=== PATIENT | female | born 1950 | race Caucasian/White ===

== ENCOUNTER 2017-01-26 05:45 | Day surgery (SDC) | payer OTHER ==
[2017-01-26] VITALS (8 sets, daily range): BP systolic 127–143; BP diastolic 51–77
[~2017-01-26] VITALS: Ht 165.1 cm; Wt 67.1 kg
[~2017-01-26 05:45] MED LIST: COZAAR50 MG ORAL; Cyclopentolate 1% Opth Sol ONE; Phenylephrine 2.5% Op Soln ONE; ZOCOR20 M1 ORAL
[2017-01-26] MEDS: Phenylephrine 2.5% Op Soln LEFT EYE SCH ×3 (06:21→06:38)
[2017-01-26] MEDS: Cyclopentolate 1% Opth Sol LEFT EYE SCH ×3 (06:21→06:38)
[2017-01-26] MEDS ORDERED: Maxitrol Opth Oint 3.5gm ONE (06:56)
[2017-01-26] MEDS ORDERED: Pred Forte 1% Opth Susp 1ml ONE (06:56)
[2017-01-26] MEDS ORDERED: Kenalog-40 1ml Vial ONE (06:56)
[2017-01-26] MEDS ORDERED: BSS 500ml btl ONE (06:56)
[2017-01-26] MEDS ORDERED: Tetracaine 0.5% Opth Soln ONE (06:57)
[2017-01-26] MEDS ORDERED: Kenalog-10 5ml Inj ONE (06:57)
[2017-01-26] MEDS ORDERED: EPINEPHrine 1mg/1ml Amp ONE (06:57)
[2017-01-26] MEDS ORDERED: Povidone-Iodine 5% opth solution ONE (06:57)
[2017-01-26] MEDS ORDERED: Dexamethasone 4mg/ml vial ONE (06:57)
[2017-01-26] MEDS ORDERED: Goniosol 2.5% Opth Soln - 15ml ONE (06:58)
[2017-01-26] MEDS ORDERED: Bupivacaine 0.75% 30ml vial INJ ONE (06:58)
[2017-01-26] MEDS ORDERED: BSS 15ml BTL ONE (06:58)
[2017-01-26] MEDS ORDERED: Lidocaine 2% MPF 5ml Vial INJ ONE (06:58)
[2017-01-26] MEDS ORDERED: fentaNYL 100 mcg/2 mL IV ONE (07:30)
[2017-01-26] MEDS ORDERED: Ketorolac 30mg Inj ONE (07:30)
[2017-01-26] MEDS ORDERED: Sterile Water Irrig 1000ml IRRIG ONE (07:30)
[2017-01-26] MEDS ORDERED: Propofol 10mg/ml 20ml IV ONE (07:30)
[2017-01-26] MEDS ORDERED: NS Irrig 1000ml ONE (07:30)
[2017-01-26] MEDS ORDERED: LR 1000ml ONE (07:30)
[2017-01-26] MEDS ORDERED: Midazolam 2mg/2ml Inj ONE (07:30)
[2017-01-26] MEDS ORDERED: Metoclopramide 10mg/2ml Inj ONE (07:30)
[2017-01-26] MEDS ORDERED: Glycopyrrolate 0.2mg/ml 1ml Vial ONE (07:30)
--- NOTE | 2017-01-26 07:31 | Pre-Procedure Note/Attestation ---
Pre-Procedure Note/Attestation Complete Prior to Procedure Planned Procedure: left Procedure Narrative: ppv/mp os Indications for Procedure Pre-Operative Diagnosis: epiretinal membrane os Attestation I attest that I discussed the nature of the procedure; its benefits; risks and complications; and alternatives (and the risks and benefits of such alternatives ), prior to the procedure, with the patient (or the patient's legal graphic art sales representative). I attest that, if there was a reasonable possibility of needing a blood transfusion, the patient (or the patient's legal graphic art sales representative) was given the [facility] standardized written summary, pursuant to the Wilmer Kylie Blood Safety Act ([place] Health and Safety Code # 1645, as amended). I attest that I re-evaluated the patient just prior to the surgery and that there has been no change in the patient's H&P, except as documented below: CARLA BOSS M.D. Jan 26, 2017 07:31
[2017-01-26] MEDS ORDERED: Indocyanine Green 25mg Inj INJ ONE (07:45)
--- NOTE | 2017-01-26 07:59 | Anethesia Preoperative Eval ---
Anesthesia Pre-op PMH/ROS General Date of Evaluation: Jan 26, 2017 Time of Evaluation: 07:30 Anesthesiologist: PAOLO ASA Score: ASA 2 Mallampati Score Class I : Soft palate, uvula, fauces, pillars visible Class II: Soft palate, uvula, fauces visible Class III: Soft palate, base of uvula visible Class IV: Only hard plate visible Mallampati Classification: Class II Surgeon: Ravi Diagnosis: left eye epiretinal membrane Surgical Procedure: vitrectomy Anesthesia History: none Family History: no anesthesia problems Allergies: Coded Allergies: PENICILLINS (Verified Allergy, Unknown, 01/25/17) Medications: see eMAR Anesthesia Pre-op Phys. Exam Physician Exam Last Vital Signs Date Time Temp Pulse Resp B/P (MAP) Pulse Ox O2 Delivery O2 Flow Rate FiO2 01/26/17 06:25 97.3 58 18 143/75 100 Room Air Constitutional: NAD Neurologic: CN 2-12 intact Cardiovascular: RRR Respiratory: CTA Airway Exam Mallampati Score: Class II MO: full ROM: full Teeth: intact Anesthesia Pre-op A/P Risk Assessment & Plan Plan: MAC/RETROBULBAR BLOCK Status Change Before Surgery: No Pre-Antibiotics Given Within 1 Hr of Incision: No Ge Amor M.D. Jan 26, 2017 07:59
--- NOTE | 2017-01-26 08:02 | Immediate Post-Op Evaluation ---
Immediate Post-Op Evalulation Immediate Post-Op Evalulation Procedure: Left Eye Vitrectomy Date of Evaluation: Jan 26, 2017 Time of Evaluation: 09:00 IV Fluids: 500 Blood Products: 0 Estimated Blood Loss: 0 Urinary Output: 0 Blood Pressure Systolic: 119 Blood Pressure Diastolic: 61 Pulse Rate: 67 Respiratory Rate: 16 O2 Sat by Pulse Oximetry: 99 Temperature (Fahrenheit): 98 Pain Score (1-10): 0 Nausea: No Vomiting: No Patient Status: awake, reacts, patent Hydration Status: adequate Given Within 1 Hr of Incision: Ge Ba M.D. Jan 26, 2017 08:01
--- NOTE | 2017-01-26 08:03 | 48 Hour Post Anesthesia Eval ---
Post Anesthesia Evaluation Procedure: Left Eye Vitrectomy Date of Evaluation: Jan 28, 2017 Time of Evaluation: 08:00 Blood Pressure Systolic: 119 0: 68 Pulse Rate: 68 Respiratory Rate: 18 Temperature (Fahrenheit): 98 O2 Sat by Pulse Oximetry: 99 Airway: patent Nausea: No Vomiting: No Hydration Status: adequate Mental Status/LOC: patient returned to baseline Follow-up care needed: patient intructions given Ge Amor M.D. Jan 26, 2017 08:03
--- NOTE | 2017-01-26 08:43 | Brief Operative Note ---
Immediate Post Operative Note Operative Note Chief Complaint: vision loss os Pre-op Diagnosis: epiretinal membrane os Procedure: ppv/ilm peel/mp / afx os Post-op Diagnosis: erm os Post-op Diagnosis: same as pre-op Surgeon: christianne Manager Of Compensation: none Specimen: none Complications: none Fluids: per anesthesia Estimated Blood Loss: none Drains: none Implant(s) used?: No CARLA BOSS M.D. Jan 26, 2017 08:43
--- NOTE | 2017-01-26 22:45 | Operative Note - Dictated ---
PREOPERATIVE DIAGNOSIS: Epiretinal membrane, left eye. POSTOPERATIVE DIAGNOSIS: Epiretinal membrane, left eye. PROCEDURE: Pars plana vitrectomy, ILM peel, membrane peel, air-fluid exchange, left eye. PRIMARY SURGEON: Ottoniel Rodrigues M.D. US MARKETING DIRECTOR: None. ANESTHESIA: Monitored anesthesia care with retrobulbar injection. ESTIMATED BLOOD LOSS: None. COMPLICATIONS: None. INDICATIONS: The patient had vision loss and distortions in her vision that were affecting her activities of daily living. After benefits, alternatives, and risks were discussed, an informed consent was signed. DESCRIPTION OF PROCEDURE: The patient was brought to the operating theater and identified. The left eye then received a retrobulbar block using the usual mixture of Marcaine and lidocaine under intravenous sedation with a retrobulbar needle. The left eye was then prepped and draped in the usual sterile fashion with a lid speculum placed. Surgical pause was repeated. A 23-gauge valved trocar/cannula was inserted in the inferotemporal quadrant at a distance of 3.5 mm posterior to the limbus using conjunctival displacement in an oblique incision pattern. Infusion line was attached to the cannula and observed to be in the posterior segment before being turned on. The superotemporal and superonasal cannulas were placed in a similar fashion. Using the Resight visualization system, the light pipe was placed into the eye and the Resight was brought into focus. The vitrectomy cutter was then placed into the eye and vitrectomy ensued in a systematic fashion starting with removal of core vitreous followed by peripheral vitreous shaving. The epiretinal membrane was clearly delineated and identified. A diluted ICG was placed on the posterior pole and allowed to remain for approximately 20 seconds. This was then washed out using aspiration. Next, under the macular contact lens, I used a [employer] underground conduit installer to lift an edge of ILM in an area peripheral to the ERM. I then used ILM forceps to engage the ILM and to peel both the ILM and ERM off of the posterior pole without complication. Next, some additional vitrectomy ensued using a wide-field system for visualization. Any loose fragments of ILM were removed. A 360 degrees scleral depressed exam was then performed and there were no retinal breaks. Next, an air-fluid exchange was performed. Instruments were removed from the eye followed by all three cannulas. There was no evidence of wound leak. Subconjunctival vancomycin and dexamethasone were injected. The lid speculum and drape were removed. Periocular area cleaned. Atropine drops and Maxitrol ointment were placed on the ocular surface. A patch and shield were affixed over the closed lids with tape. There were no complications during this case and I performed the entire case. The patient was taken to the recovery area in good spirits and in no pain. Ottoniel Rodrigues M.D. DR: MONIK JOB#: [id number] CC:
== END 2017-01-26 09:45 | disposition home or self-care (01) ==
LOC: SUR 05:45
DX: H35.372 Puckering of macula, left eye (principal); I10 Essential (primary) hypertension; E78.5 Hyperlipidemia, unspecified; M81.0 Age-related osteoporosis without current pathological fracture; E04.1 Nontoxic single thyroid nodule; Z88.0 Allergy status to penicillin; Z79.82 Long term (current) use of aspirin; Z79.899 Other long term (current) drug therapy
CPT/HCPCS: 67042; J0171; J1100; J1885; J2250; J2405; J2704; J2765; J3010; J3370; J3470; J3490; J7120